=== PATIENT | male | born 1965 | race Hispanic/Latino ===

== ENCOUNTER 2023-09-01 16:03 | Emergency (ER) | payer OTHER ==
[~2023-09-01] VITALS: Ht 154.9 cm; Wt 83.9 kg
[2023-09-01 19:26] LABS: BASOPHILS # (AUTO) 0.06 K/uL (0.00-0.20); BASOPHILS % (AUTO) 0.6 % (0.0-5.0); EOSINOPHILS # (AUTO) 0.34 K/uL (0.00-0.70); EOSINOPHILS % (AUTO) 3.5 % (0.0-8.0); IMMATURE GRANULOCYTE ABSOLUTE 0.05 K/uL (0-1); LYMPHOCYTES # (AUTO) 1.3 K/uL (1.0-4.8); MEAN CORPUSCULAR HEMOGLOBIN 33.9 pg (27.0-33.0); MEAN CORPUSCULAR HGB CONC 35.6 g/dL (32.0-36.0); MEAN CORPUSCULAR VOLUME 95.3 fL (79-99); MONOCYTES # (AUTO) 0.8 K/uL (0.1-1.0); MONOCYTES % (AUTO) 8.7 % (3.0-13.0); NEUTROPHILS # (AUTO) 7.1 K/uL (1.8-7.7); NEUTROPHILS % (AUTO) 73.7 % (40.0-77.0); PLATELET COUNT (AUTO) 271 K/uL (130-400); RED BLOOD CELL COUNT(AUTO) 4.72 MIL/uL (4.50-6.20); RED CELL DISTRIBUTION WIDTH 11.9 % (11.0-15.5); WHITE BLOOD COUNT (AUTO) 9.7 K/uL (4.8-10.8)
[2023-09-01 19:27] LABS: ADD UA MICROSCOPIC YES; APPEARANCE,URINE CLEAR (CLEAR); BILIRUBIN,URINE NEGATIVE (NEGATIVE); COLOR,URINE YELLOW (YELLOW); GLUCOSE, URINE (UA) 50 mg/dL (NEGATIVE); KETONES,URINE NEGATIVE (NEGATIVE); LEUKOCYTE ESTERASE ,URINE NEGATIVE Leu/uL (NEGATIVE); NITRATE,URINE NEGATIVE (NEGATIVE); OCCULT BLOOD,URINE NEGATIVE (NEGATIVE); PH,URINE 5.5 (5.0-8.0); PROTEIN,URINE NEGATIVE (NEGATIVE); UROBILINOGEN,URINE 0.2 mg/dL (0.2-1.0)
[2023-09-01 19:35] LABS: BACTERIA,URINE RARE /HPF (None Seen); MUCUS,URINE RARE LPF (None Seen); POTASSIUM 3.8 mmol/L (3.5-5.1); WBC,URINE 0-1 /HPF (0-1)
[2023-09-01 19:39] LABS: ALBUMIN 4.2 g/dL (3.5-5.0); BILIRUBIN,TOTAL 0.8 mg/dL (0.2-1.0); TOTAL PROTEIN, SERUM 8.5 g/dL (6.0-8.3)
[2023-09-01] MEDS ORDERED: SULF1TAB42 PO (19:48)
[2023-09-01] MEDS ORDERED: CEPH500B PO (19:48)
[2023-09-01 20:05] VITALS: BP 139/81; PULSE 74; RESP 18; O2SAT 98
== END 2023-09-01 20:11 | disposition home or self-care (01) ==
LOC: EDH 16:03
DX: L03.116 Cellulitis of left lower limb (principal); L03.115 Cellulitis of right lower limb; E11.9 Type 2 diabetes mellitus without complications; Z79.899 Other long term (current) drug therapy
CPT/HCPCS: 36415; 80053; 81001; 83605; 83690; 85025; 93970

== ENCOUNTER 2023-09-06 10:34 | Inpatient (IN) | payer OTHER ==
[~2023-09-06] VITALS: Ht 157.5 cm; Wt 70.5 kg
[~2023-09-06 10:34] MED LIST: CEPH500B PO; SULF1TAB42 PO
[2023-09-06] MEDS ORDERED: CLINDAMYCIN IVPB 600MG/50ML 50 ML IV SCH (12:00)
[2023-09-06] MEDS ORDERED: ZOSYN 3.375GM +NS 50ML IVPB ONE (12:00)
[2023-09-06 12:34] LABS: BASOPHILS # (AUTO) 0.07 K/uL (0.00-0.20); BASOPHILS % (AUTO) 0.7 % (0.0-5.0); EOSINOPHILS # (AUTO) 0.26 K/uL (0.00-0.70); EOSINOPHILS % (AUTO) 2.7 % (0.0-8.0); HEMATOCRIT 47.2 % (42-54); IMMATURE GRANULOCYTE ABSOLUTE 0.04 K/uL (0-1); LYMPHOCYTES # (AUTO) 1.6 K/uL (1.0-4.8); LYMPHOCYTES % (AUTO) 17.2 % (21.0-51.0); MEAN CORPUSCULAR HEMOGLOBIN 34.1 pg (27.0-33.0); MEAN CORPUSCULAR HGB CONC 35.8 g/dL (32.0-36.0); MEAN CORPUSCULAR VOLUME 95.2 fL (79-99); MONOCYTES # (AUTO) 0.8 K/uL (0.1-1.0); NEUTROPHILS # (AUTO) 6.8 K/uL (1.8-7.7); PLATELET COUNT (AUTO) 263 K/uL (130-400); RED BLOOD CELL COUNT(AUTO) 4.96 MIL/uL (4.50-6.20); RED CELL DISTRIBUTION WIDTH 11.9 % (11.0-15.5); WHITE BLOOD COUNT (AUTO) 9.6 K/uL (4.8-10.8)
[2023-09-06 12:54] LABS: ALBUMIN 4.1 g/dL (3.5-5.0); BILIRUBIN,TOTAL 0.9 mg/dL (0.2-1.0); POTASSIUM 4.1 mmol/L (3.5-5.1); TOTAL PROTEIN, SERUM 8.5 g/dL (6.0-8.3)
[2023-09-06 14:10] LABS: APPEARANCE,URINE CLEAR (CLEAR); BILIRUBIN,URINE NEGATIVE (NEGATIVE); COLOR,URINE YELLOW (YELLOW); GLUCOSE, URINE (UA) TRACE mg/dL (NEGATIVE); KETONES,URINE 10 mg/dL (NEGATIVE); LEUKOCYTE ESTERASE ,URINE NEGATIVE Leu/uL (NEGATIVE); NITRATE,URINE NEGATIVE (NEGATIVE); OCCULT BLOOD,URINE NEGATIVE (NEGATIVE); PROTEIN,URINE 50 mg/dL (NEGATIVE)
[2023-09-06 14:14] LABS: ADD UA MICROSCOPIC YES
[2023-09-06 14:23] LABS: MUCUS,URINE FEW LPF (None Seen); RBC,URINE 0-1 /HPF (0-1); SQUAMOUS EPITHELIAL CELL,UR RARE /HPF (0-2)
[2023-09-06] MEDS ORDERED: ONDANSETRON 4MG INJ IVP PRN ×2 (16:00→19:30)
[2023-09-06] MEDS ORDERED: ACETAMINOPHEN 500 MG TABLET PO PRN (16:00)
[2023-09-06] MEDS ORDERED: VANCOMYCIN PROTOCOL PER PHARMACY IV SCH (16:00)
[2023-09-06 16:05] LABS: INR < 0.93 (0.85-1.15); PROTHROMBIN TIME 10.8 SEC (9.6-11.6)
[2023-09-06 16:06] LABS: PARTIAL THROMBOPLASTIN TIME 30.8 SEC (26.3-35.5)
[2023-09-06 16:15] LABS: HEMOGLOBIN A1C 6.9 % (4.0-6.0)
[2023-09-06] MEDS: CEFEPIME HCL 2 GM VIAL IVPB SCH (16:22)
[2023-09-06] MEDS: 0.9%NACL 1000ML 1,000 ML IV SCH (16:23)
[2023-09-06] MEDS: INSULIN HUMULIN R 100 UNIT/ML 3ML SQ SCH ×2 (16:30→21:00)
[2023-09-06] MEDS ORDERED: VANCOMYCIN 2GM/500 ML BAG 500 ML IV ONE (16:30)
[2023-09-06 16:33] LABS: THYROID STIMULATING HORMONE 2.68 uIU/mL (0.36-3.74)
[2023-09-06] MEDS: FAMOTIDINE 20MG TAB PO SCH (21:14)
[2023-09-06 22:01] LABS: AMPHET/METH SCREEN,URINE NEGATIVE (NEGATIVE); BARBITURATE SCREEN, URINE NEGATIVE (NEGATIVE); BENZODIAZEPINES SCREEN,URINE NEGATIVE (NEGATIVE); CANNABINOID SCREEN,URINE NEGATIVE (NEGATIVE); COCAINE SCREEN,URINE NEGATIVE (NEGATIVE); OPIATE SCREEN,URINE NEGATIVE (NEGATIVE); PHENCYCLIDINE SCREEN,URINE NEGATIVE (NEGATIVE)
[2023-09-07] MEDS: 0.9%NACL 1000ML 1,000 ML IV SCH ×2 (02:50→11:58)
[2023-09-07] MEDS: VANCOMYCIN 1G/250ML KIT 250 ML IV SCH ×2 (04:51→17:18)
[2023-09-07] MEDS: CEFEPIME HCL 2 GM VIAL IVPB SCH ×2 (04:51→16:42)
[2023-09-07] MEDS: INSULIN HUMULIN R 100 UNIT/ML 3ML SQ SCH ×4 (07:30→20:45)
[2023-09-07 08:01] LABS: BASOPHILS # (AUTO) 0.06 K/uL (0.00-0.20); BASOPHILS % (AUTO) 0.8 % (0.0-5.0); EOSINOPHILS # (AUTO) 0.39 K/uL (0.00-0.70); EOSINOPHILS % (AUTO) 4.9 % (0.0-8.0); HEMATOCRIT 40.4 % (42-54); IMMATURE GRANULOCYTE ABSOLUTE 0.03 K/uL (0-1); LYMPHOCYTES # (AUTO) 1.4 K/uL (1.0-4.8); MEAN CORPUSCULAR HEMOGLOBIN 33.9 pg (27.0-33.0); MEAN CORPUSCULAR HGB CONC 34.7 g/dL (32.0-36.0); MEAN CORPUSCULAR VOLUME 97.8 fL (79-99); MONOCYTES # (AUTO) 0.9 K/uL (0.1-1.0); NEUTROPHILS # (AUTO) 5.2 K/uL (1.8-7.7); NEUTROPHILS % (AUTO) 65.9 % (40.0-77.0); PLATELET COUNT (AUTO) 213 K/uL (130-400); RED BLOOD CELL COUNT(AUTO) 4.13 MIL/uL (4.50-6.20); RED CELL DISTRIBUTION WIDTH 11.9 % (11.0-15.5); WHITE BLOOD COUNT (AUTO) 7.9 K/uL (4.8-10.8)
[2023-09-07 08:22] LABS: ALBUMIN 3.1 g/dL (3.5-5.0); BILIRUBIN,TOTAL 0.9 mg/dL (0.2-1.0); CREATININE 0.8 mg/dL (0.5-1.5); MAGNESIUM 2.3 mg/dL (1.80-2.40); POTASSIUM 4.1 mmol/L (3.5-5.1); TOTAL PROTEIN, SERUM 6.5 g/dL (6.0-8.3)
[2023-09-07 08:30] VITALS: O2SAT 97
[2023-09-07] MEDS ORDERED: NYSTATIN-TRIAMCINOLONE CREAM 15 GM TP SCH (09:00)
[2023-09-07] MEDS: FAMOTIDINE 20MG TAB PO SCH ×2 (09:02→20:39)
[2023-09-07 09:51] VITALS: BP 112/68; PULSE 64; RESP 18
[2023-09-07 11:15] VITALS: BP 125/76; PULSE 74; RESP 18
[2023-09-07 16:15] VITALS: BP 121/72; PULSE 69; RESP 18
[2023-09-07 20:00] VITALS: BP 125/77; PULSE 82; RESP 20
[2023-09-07 20:40] VITALS: O2SAT 100
[2023-09-07] MEDS: ENOXAPARIN SODIUM 40 MG/0.4 ML SYRINGE SQ SCH (20:41)
[2023-09-07] MEDS: NYSTATIN 15 GM POWDER TP SCH (21:06)
[2023-09-08] VITALS (9 sets, daily range): BP systolic 100–134; BP diastolic 56–74; PULSE 57–79; RESP 17–20; O2SAT 99–100
[2023-09-08] MEDS: CEFEPIME HCL 2 GM VIAL IVPB SCH ×2 (03:44→15:53)
[2023-09-08] MEDS: INSULIN HUMULIN R 100 UNIT/ML 3ML SQ SCH ×4 (05:37→20:26)
[2023-09-08] MEDS ORDERED: COMPOUND IV REFRIGERATED 1 EACH IVSOLN MISC PRN (06:30)
[2023-09-08] MEDS: VANCOMYCIN 1.25 GM/250 ML BAG 250 ML IV SCH ×2 (06:37→17:15)
[2023-09-08] MEDS: FAMOTIDINE 20MG TAB PO SCH ×2 (09:10→20:20)
[2023-09-08] MEDS: NYSTATIN 15 GM POWDER TP SCH ×2 (09:11→20:21)
[2023-09-08] MEDS: LORATADINE 10 MG TABLET PO SCH (12:40)
[2023-09-08] MEDS: ENOXAPARIN SODIUM 40 MG/0.4 ML SYRINGE SQ SCH (20:20)
[2023-09-09] VITALS (7 sets, daily range): BP systolic 114–127; BP diastolic 63–76; PULSE 63–82; RESP 17–20; O2SAT 97–100
[2023-09-09] MEDS: CEFEPIME HCL 2 GM VIAL IVPB SCH ×2 (03:46→17:52)
[2023-09-09] MEDS: INSULIN HUMULIN R 100 UNIT/ML 3ML SQ SCH ×4 (05:48→20:58)
[2023-09-09] MEDS: VANCOMYCIN 1.25 GM/250 ML BAG 250 ML IV SCH ×2 (06:05→19:07)
[2023-09-09] MEDS: LORATADINE 10 MG TABLET PO SCH (07:52)
[2023-09-09] MEDS: FAMOTIDINE 20MG TAB PO SCH ×2 (07:52→20:59)
[2023-09-09] MEDS: NYSTATIN 15 GM POWDER TP SCH ×2 (07:52→21:01)
[2023-09-09] MEDS: ENOXAPARIN SODIUM 40 MG/0.4 ML SYRINGE SQ SCH (21:01)
[2023-09-10 00:20] VITALS: BP 121/65; PULSE 71; RESP 20
[2023-09-10 03:20] VITALS: BP 113/61; PULSE 72; RESP 18
[2023-09-10] MEDS: CEFEPIME HCL 2 GM VIAL IVPB SCH (05:12)
[2023-09-10 05:25] LABS: HEMATOCRIT 38.1 % (42-54); MEAN CORPUSCULAR HEMOGLOBIN 33.5 pg (27.0-33.0); MEAN CORPUSCULAR HGB CONC 34.4 g/dL (32.0-36.0); MEAN CORPUSCULAR VOLUME 97.4 fL (79-99); RED BLOOD CELL COUNT(AUTO) 3.91 MIL/uL (4.50-6.20); RED CELL DISTRIBUTION WIDTH 11.8 % (11.0-15.5); WHITE BLOOD COUNT (AUTO) 8.5 K/uL (4.8-10.8)
[2023-09-10 05:40] LABS: ALBUMIN 3.1 g/dL (3.5-5.0); BILIRUBIN,TOTAL 0.3 mg/dL (0.2-1.0); CREATININE 0.8 mg/dL (0.5-1.5); MAGNESIUM 2.1 mg/dL (1.80-2.40); POTASSIUM 3.9 mmol/L (3.5-5.1); TOTAL PROTEIN, SERUM 6.8 g/dL (6.0-8.3)
[2023-09-10] MEDS: INSULIN HUMULIN R 100 UNIT/ML 3ML SQ SCH (06:35)
[2023-09-10] MEDS: VANCOMYCIN 1.25 GM/250 ML BAG 250 ML IV SCH (07:45)
[2023-09-10 08:00] VITALS: O2SAT 100
[2023-09-10 08:43] VITALS: BP 135/71; PULSE 72; RESP 18
[2023-09-10] MEDS: NYSTATIN 15 GM POWDER TP SCH (09:01)
[2023-09-10] MEDS: LORATADINE 10 MG TABLET PO SCH (09:01)
[2023-09-10] MEDS: FAMOTIDINE 20MG TAB PO SCH (09:01)
[2023-09-10] MEDS ORDERED: CLIN-141 PO (11:00)
[2023-09-10] MEDS ORDERED: NYSTPW TP (11:00)
[2023-09-10] MEDS ORDERED: LORA10TA7 PO (11:00)
[2023-09-10] MEDS ORDERED: METF-444 PO (11:03)
[2023-09-10 12:00] VITALS: BP 145/81; PULSE 70; RESP 18
== END 2023-09-10 16:15 | disposition home or self-care (01) | DRG 603 ==
LOC: EDH 10:34 → EDHIP 10:35 → 3BH 09-07 06:31
PROVIDERS: ADMIT Internal Medicine; ATTEND Internal Medicine
DX: L03.115 Cellulitis of right lower limb (principal); E87.20 Acidosis, unspecified; E87.1 Hypo-osmolality and hyponatremia; E11.52 Type 2 diabetes mellitus with diabetic peripheral angiopathy with gangrene; L03.116 Cellulitis of left lower limb; E86.1 Hypovolemia; B35.3 Tinea pedis; L30.9 Dermatitis, unspecified; B36.8 Other specified superficial mycoses; E11.621 Type 2 diabetes mellitus with foot ulcer; F17.210 Nicotine dependence, cigarettes, uncomplicated; L97.519 Non-pressure chronic ulcer of other part of right foot with unspecified severity; L97.529 Non-pressure chronic ulcer of other part of left foot with unspecified severity
CPT/HCPCS: 36415; 73620; 80053; 80202; 80305; 81001; 82948; 83036; 83605; 83735; 84145; 84443; 85025; 85027; 85610; 85651; 85730; 86140; 87040; 99291; G0378; J0692; J1650; J1815; J2543; J3370; J3490; 3370